=== PATIENT | male | born 1970 | race Caucasian/White ===

== ENCOUNTER 2017-08-12 01:32 | Outpatient (CLI) | payer BC | END 2017-08-12 23:59 | disposition home or self-care (01) | LOC: DIABETIC 01:32 | PROVIDERS: ATTEND Specialist | DX: E11.9 Type 2 diabetes mellitus without complications (principal) | CPT/HCPCS: G0108 ==

== ENCOUNTER 2017-08-30 14:57 | Emergency (ER) | payer BC ==
[~2017-08-30] VITALS: Ht 180.3 cm; Wt 104.5 kg
[2017-08-30] MEDS ORDERED: epiNEPHrine 1 mg/ml inj SQ PRN (15:05)
[2017-08-30] MEDS ORDERED: normal saline 1000ML IV soln IVB ONE ×2 (15:05)
[2017-08-30] MEDS ORDERED: diphenhydrAMINE 50 mg/ml inj IV ONE (15:05)
[2017-08-30] MEDS ORDERED: famotidine/PF 10 mg/ml inj IV ONE (15:05)
[2017-08-30] MEDS ORDERED: dexamethasone sod phosphate 10mg/ml inj IV STA (15:05)
[2017-08-30 17:00] VITALS: BP 120/80
[2017-08-30] MEDS ORDERED: PRED20TA PO (17:20)
[2017-08-30] MEDS ORDERED: EPIN0.3P8 IM (17:20)
== END 2017-08-30 17:35 | disposition home or self-care (01) ==
LOC: ER 14:57
DX: T63.441A Toxic effect of venom of bees, accidental (unintentional), initial encounter (principal); G89.29 Other chronic pain; E11.9 Type 2 diabetes mellitus without complications; M19.90 Unspecified osteoarthritis, unspecified site; Z88.5 Allergy status to narcotic agent; Z79.899 Other long term (current) drug therapy; Y92.89 Other specified places as the place of occurrence of the external cause
CPT/HCPCS: 96361; 96372; 96374; 96375; 99284; J0171; J1100; J1200; J3490; J7030

== ENCOUNTER 2017-09-30 02:43 | Outpatient (CLI) | payer BC ==
[~2017-09-30 02:43] MED LIST: EPIN0.3P8 IM; PRED20TA PO
== END 2017-09-30 23:59 | disposition home or self-care (01) ==
LOC: DIABETIC 02:43
PROVIDERS: ATTEND Specialist
DX: E11.9 Type 2 diabetes mellitus without complications (principal)
CPT/HCPCS: G0108

== ENCOUNTER 2022-10-17 18:54 | Emergency (ER) | payer BC, MEDICAID ==
[~2022-10-17] VITALS: Ht 180.3 cm; Wt 99.2 kg
[~2022-10-17 18:54] MED LIST changes: -PRED20TA PO
[2022-10-17] MEDS ORDERED: epiNEPHrine 1 mg/ml inj SQ STA (19:03)
[2022-10-17] MEDS ORDERED: normal saline 1000ML IV soln IVB STA (19:31)
[2022-10-17] MEDS ORDERED: methylPREDNISolone sod succ 125mg/2ml vial IV ONE (19:35)
[2022-10-17 19:59] LABS: BASOPHILS # (AUTO) 0.1 X10'3 (0-0.2); BASOPHILS % (AUTO) 0.6 % (0-1); EOSINOPHILS # (AUTO) 0.4 X10'3 (0-0.9); EOSINOPHILS % (AUTO) 3.8 % (0-6); HEMATOCRIT 47.7 % (42.0-52.0); HEMOGLOBIN 16.3 g/dl (14.0-17.9); LYMPHOCYTES # (AUTO) 4.3 X10'3 (1.1-4.8); LYMPHOCYTES % (AUTO) 46.4 % (21-51); MEAN CORPUSCULAR HEMOGLOBIN 28.9 PG (27.0-31.0); MEAN CORPUSCULAR VOLUME 84.8 FL (78-98); MEAN PLATELET VOLUME 9.1 FL (7.4-10.4); MONOCYTES # (AUTO) 0.7 X10'3 (0-0.9); MONOCYTES % (AUTO) 7.3 % (2-12); NEUTROPHILS # (AUTO) 3.9 X10'3 (1.8-7.7); NEUTROPHILS % (AUTO) 41.9 % (42-75); PLATELET COUNT 228 X10'3 (140-440); RED BLOOD COUNT 5.63 X10'6 (4.70-6.10); WHITE BLOOD COUNT 9.4 X10'3 (4.5-11.0)
[2022-10-17 20:12] LABS: ALANINE AMINOTRANSFERASE 18 U/L (12-78); ALBUMIN 4.1 G/DL (3.4-5.0); ALBUMIN/GLOBULIN RATIO 1.2 (1.1-1.5); ALKALINE PHOSPHATASE 105 IU/L (46-116); ANION GAP 8 (8-16); ASPARTATE AMINO TRANSFERASE 14 U/L (10-37); BILIRUBIN,TOTAL 0.5 MG/DL (0.1-1.0); BLOOD UREA NITROGEN 14 MG/DL (7-18); BUN/CREATININE RATIO 12.6 (10.0-20.0); CALCIUM 9.4 MG/DL (8.5-10.1); CHLORIDE 103 MMOL/L (99-107); CREATININE 1.11 MG/DL (0.60-1.10); GLUCOSE 185 MG/DL (70-104); POTASSIUM 3.9 MMOL/L (3.5-5.1); SODIUM 137 MMOL/L (135-145); TOTAL CARBON DIOXIDE 25.9 MMOL/L (24-32); TOTAL PROTEIN 7.4 G/DL (6.4-8.2); eGFR 69 ML/MIN
[2022-10-17] MEDS ORDERED: PRED20TA PO (21:21)
[2022-10-17] MEDS ORDERED: EPIN0.3P3 IM (21:21)
[2022-10-17 21:30] VITALS: BP 120/76
== END 2022-10-17 21:31 | disposition home or self-care (01) ==
LOC: ER 18:54
DX: T63.441A Toxic effect of venom of bees, accidental (unintentional), initial encounter (principal); Y92.89 Other specified places as the place of occurrence of the external cause
CPT/HCPCS: 36415; 71045; 80053; 85025; 96361; 96372; 96374; 99284; J0171; J2930; J7030

== ENCOUNTER 2023-09-30 09:29 | Outpatient (CLI) | payer BC ==
[~2023-09-30 09:29] MED LIST changes: +EPIN0.3P3 IM
[2023-09-30 10:28] LABS: ALANINE AMINOTRANSFERASE 27 U/L (12-78); ALBUMIN 3.7 G/DL (3.4-5.0); ALKALINE PHOSPHATASE 100 IU/L (46-116); ANION GAP 8 (8-16); ASPARTATE AMINO TRANSFERASE 20 U/L (10-37); BILIRUBIN,TOTAL 0.7 MG/DL (0.1-1.0); BLOOD UREA NITROGEN 21 MG/DL (7-18); BUN/CREATININE RATIO 23.6 (10.0-20.0); CHLORIDE 103 MMOL/L (99-107); CREATININE 0.89 MG/DL (0.60-1.10); GLUCOSE 205 MG/DL (70-104); SODIUM 136 MMOL/L (135-145); TOTAL CARBON DIOXIDE 24.8 MMOL/L (24-32); TOTAL PROTEIN 7.3 G/DL (6.4-8.2); eGFR 89 ML/MIN
[2023-09-30 10:39] LABS: CHOL/HDL RATIO 6.6 (0.00-4.99); CHOLESTEROL 257 MG/DL (0-200); HDL CHOLESTEROL 39 MG/DL (35-60); LDL CHOLESTEROL 131 MG/DL (50-100); TRIGLYCERIDES 352 MG/DL (20-135)
[2023-09-30 10:43] LABS: THYROID STIMULATING HORMONE 1.12 ulU/ml (0.34-4.50)
[2023-09-30 10:49] LABS: HEMOGLOBIN A1C 8.6 % (4.5-6.2)
[2023-10-02 05:57] LABS: MICROALBUMIN, RANDOM URINE 8.9 ug/mL (Not Estab.)
== END 2023-09-30 23:59 | disposition home or self-care (01) ==
LOC: LAB 09:29
PROVIDERS: ATTEND Internal Medicine Endocrinology, Diabetes & Metabolism
DX: E11.9 Type 2 diabetes mellitus without complications (principal); E55.9 Vitamin D deficiency, unspecified; E78.5 Hyperlipidemia, unspecified
CPT/HCPCS: 36415; 80053; 80061; 82043; 82306; 83036; 84443

== ENCOUNTER 2024-03-21 01:04 | Emergency (ER) | payer BC ==
[~2024-03-21] VITALS: Ht 177.8 cm; Wt 102.3 kg
[2024-03-21 01:16] VITALS: BP 146/97; PULSE 71; TEMP 98.7; O2SAT 97
[2024-03-21 03:43] VITALS: RESP 18
== END 2024-03-21 03:44 | disposition home or self-care (01) ==
LOC: ER 01:11
DX: M25.561 Pain in right knee (principal); M19.90 Unspecified osteoarthritis, unspecified site; E11.9 Type 2 diabetes mellitus without complications; G89.29 Other chronic pain; M54.9 Dorsalgia, unspecified; Z88.5 Allergy status to narcotic agent; Z79.899 Other long term (current) drug therapy; X50.1XXA Overexertion from prolonged static or awkward postures, initial encounter; Y93.89 Activity, other specified; Y92.89 Other specified places as the place of occurrence of the external cause; Y99.8 Other external cause status
CPT/HCPCS: 29505; 73700; 99284; A6449

== ENCOUNTER 2024-04-10 13:24 | Outpatient (CLI) | payer BC, OTHER ==
[2024-04-10 15:46] LABS: HIV ANTIBODY 1&2 RAPID NON-REACTIVE (Neg)
[2024-04-14 05:23] LABS: HEPATITIS C VIRUS ANTIBODY Non Reactive (Non Reactive)
== END 2024-04-10 23:00 | disposition home or self-care (01) ==
LOC: LAB 13:24 → ER 23:00
PROVIDERS: ATTEND Emergency Medicine
DX: Z77.21 Contact with and (suspected) exposure to potentially hazardous body fluids (principal)
CPT/HCPCS: 36415; 84460; 86703; 86803; 87522

== ENCOUNTER 2024-07-30 10:17 | Emergency (ER) | payer BC ==
[~2024-07-30] VITALS: Ht 180.3 cm; Wt 101.4 kg
[2024-07-30 10:20] VITALS: BP 139/85; PULSE 73; RESP 18; TEMP 97.8; O2SAT 98
[2024-07-30] MEDS ORDERED: ERYT1OIN6 RIGHTEYE (10:21)
[2024-07-30] MEDS ORDERED: DOXY-1 PO (10:21)
== END 2024-07-30 10:39 | disposition home or self-care (01) ==
LOC: ER 10:18
DX: H00.011 Hordeolum externum right upper eyelid (principal); E11.9 Type 2 diabetes mellitus without complications; M19.90 Unspecified osteoarthritis, unspecified site; Z88.5 Allergy status to narcotic agent; Z98.890 Other specified postprocedural states
CPT/HCPCS: 99283

== ENCOUNTER 2024-10-07 01:33 | Emergency (ER) | payer BC ==
[~2024-10-07] VITALS: Ht 180.3 cm; Wt 93.0 kg
[2024-10-07 01:34] VITALS: BP 143/89; PULSE 69; RESP 15; TEMP 96.8; O2SAT 98
--- NOTE | 2024-10-07 02:01 | RADIOLOGY REPORT ---
CHEST RADIOGRAPH Indication: sepsis Technique: Single frontal view of the chest was obtained COMPARISON: CHEST,SINGLE VIEW on DOS: 10/17/22 FINDINGS: Lines and Tubes: None Lungs: Clear Pleura: No effusion. No pneumothorax. Cardiomediastinal contours: Unremarkable IMPRESSION: No abnormality demonstrated. No appreciable change compared to the prior chest x-ray from October 2022.
[2024-10-07 02:04] LABS: BASOPHILS % (AUTO) 0.6 % (0-1); EOSINOPHILS # (AUTO) 0.5 X10'3 (0-0.9); EOSINOPHILS % (AUTO) 6.3 % (0-6); HEMATOCRIT 40.1 % (42.0-52.0); HEMOGLOBIN 13.9 g/dl (14.0-17.9); LYMPHOCYTES # (AUTO) 2.8 X10'3 (1.1-4.8); LYMPHOCYTES % (AUTO) 38.8 % (21-51); MEAN CORPUSCULAR HEMOGLOBIN 29.1 PG (27.0-31.0); MEAN CORPUSCULAR HGB CONC 34.6 g/dL (33.0-36.5); MEAN CORPUSCULAR VOLUME 84.2 FL (78-98); MEAN PLATELET VOLUME 9.3 FL (7.4-10.4); MONOCYTES # (AUTO) 0.5 X10'3 (0-0.9); MONOCYTES % (AUTO) 6.9 % (2-12); NEUTROPHILS # (AUTO) 3.4 X10'3 (1.8-7.7); NEUTROPHILS % (AUTO) 47.4 % (42-75); PLATELET COUNT 203 X10'3 (140-440); RED BLOOD COUNT 4.76 X10'6 (4.70-6.10); RED CELL DISTRIBUTION WIDTH 13.2 % (11.5-14.5); WHITE BLOOD COUNT 7.1 X10'3 (4.5-11.0)
[2024-10-07 02:21] LABS: ALANINE AMINOTRANSFERASE 17 U/L (12-78); ALBUMIN 3.8 G/DL (3.4-5.0); ALBUMIN/GLOBULIN RATIO 1.3 (1.1-1.5); ALKALINE PHOSPHATASE 92 IU/L (46-116); ANION GAP 9 (8-16); ASPARTATE AMINO TRANSFERASE 17 U/L (10-37); BILIRUBIN,TOTAL 0.7 MG/DL (0.1-1.0); BLOOD UREA NITROGEN 14 MG/DL (7-18); BUN/CREATININE RATIO 14.7 (10.0-20.0); CALCIUM 8.8 MG/DL (8.5-10.1); CHLORIDE 104 MMOL/L (99-107); CREATININE 0.95 MG/DL (0.60-1.10); GLUCOSE 110 MG/DL (70-104); POTASSIUM 3.5 MMOL/L (3.5-5.1); SODIUM 140 MMOL/L (135-145); TOTAL CARBON DIOXIDE 26.7 MMOL/L (24-32); TOTAL PROTEIN 6.8 G/DL (6.4-8.2); eCRCL 92 ML/MIN; eGFR 82 ML/MIN
[2024-10-07 02:37] LABS: BILIRUBIN,URINE NEGATIVE (Neg); CLARITY,URINE CLEAR (Clear); COLOR,URINE YELLOW (Yellow); GLUCOSE, URINE NEGATIVE (Neg); KETONES,URINE TRACE mg/dl (Neg); LEUKOCYTE ESTERASE ,URINE NEGATIVE (Neg); NITRITES, URINE NEGATIVE (Neg); OCCULT BLOOD,URINE NEGATIVE (Neg); PROTEIN,URINE NEGATIVE (Neg); UROBILINOGEN,URINE 0.2 E.U/dL (0.2-1.0)
[2024-10-07 02:42] LABS: UA COLLECTION TYPE CLN CATCH MIDSTREAM
--- NOTE | 2024-10-07 03:29 | Physician Documentation ---
History of Present Illness ~ Chief Complaint: Back Pain Stated Complaint: BACK PAIN Time Seen by MD: 03:23 Primary Medical Doctor: EARLENE BAIRES CADDIE HPI Patient reports right-sided back pain that has been going on for proximally two months. He has done course of steroids with improvement however symptoms have continued. He has done conservative management such as stretching and [id number] remedies with little benefit. He does not have a primary care in his unsure of his prostate status. Medication Reconciliation Allergies: Coded Allergies: morphine (Verified Allergy, Unknown, VOMTING, 10/07/24) Uncoded Allergies: BEE STING (Allergy, Severe, HIVES, TONGUE SWELLING., 08/30/17) Scheduled Epinephrine (Epipen 2-Cecilio), 0.3 MG IM UD Scheduled PRN Epinephrine (Epipen 2-Cecilio), 1 SYR IM ONCE PRN for allergies Past Medical History Past Medical History: Diabetes, Arthritis, Chronic Back Pain Past Surgical History: abdominal surgery Lives with: Spouse Lives In: Home Occupation: employed Review of Systems ROS All review of systems negative except as per HPI Physical Exam Physical Exam Vital Signs: Temperature: 96.8, Source: Temporal, Heart Rate: 69, Respiratory Rate: 15, BP: 143/89, Pulse Oximetry: 98, Weight: 93.000 Physical Exam General: Patient is awake, alert, oriented x4 in no acute distress and well appearing.~ Head: Normocephalic and atraumatic. Eyes: Conjunctival normal. EOMI. PERRL. ENT: Mucous membranes moist. Neck: Supple, trachea is midline. Chest: Clear to auscultation bilaterally without rales, rhonchi, or wheezes. There is no accessory muscle use or retractions. Cardiac: RRR without murmurs, gallops, or rubs. Back: Tenderness to palpation beneath right scapula. No spinal midline tenderness Progress Results/Orders Results/Orders Orders - LUMA SCHMIDT MD Psa Total+% Free (10/07/24 01:36) Chest,Single View (10/07/24 01:51) Completed Orders - LUMA SCHMIDT MD CMP (10/07/24 01:36) Cbc/Diff (10/07/24 01:36) Chest,Single View (10/07/24 01:51) Urinalysis, Cult If Indicated (10/07/24 02:04) Vital Signs 10/07/24 01:34 Temp 96.8 Pulse 69 Resp 15 B/P (MAP) 143/89 Pulse Ox 98 Laboratory Tests Test 10/07/24 01:44 10/07/24 01:45 White Blood Count 7.1 Red Blood Count 4.76 Hemoglobin 13.9 L Hematocrit 40.1 L Mean Corpuscular Volume 84.2 Mean Corpuscular Hemoglobin 29.1 Mean Corpuscular Hemoglobin Concent 34.6 Red Cell Distribution Width 13.2 Platelet Count 203 Mean Platelet Volume 9.3 Neutrophils (%) (Auto) 47.4 Lymphocytes (%) (Auto) 38.8 Monocytes (%) (Auto) 6.9 Eosinophils (%) (Auto) 6.3 H Basophils (%) (Auto) 0.6 Neutrophils # (Auto) 3.4 Lymphocytes # (Auto) 2.8 Monocytes # (Auto) 0.5 Eosinophils # (Auto) 0.5 Basophils # (Auto) 0.0 CBC Comment Sodium Level 140 Potassium Level 3.5 Chloride Level 104 Carbon Dioxide Level 26.7 Anion Gap 9 Blood Urea Nitrogen 14 Creatinine 0.95 Estimated GFR/1.73 m2 82 BUN/Creatinine Ratio 14.7 Glucose Level 110 H Calcium Level 8.8 Total Bilirubin 0.7 Aspartate Amino Transf (AST/SGOT) 17 Alanine Aminotransferase (ALT/SGPT) 17 Alkaline Phosphatase 92 Total Protein 6.8 Albumin 3.8 Globulin 3.0 Albumin/Globulin Ratio 1.3 Chemistry Comments Urine Specimen Description Cln catch midstream Urine Color Yellow Urine Clarity Clear Urine pH 6.0 Urine Specific [place] >=1.030 Urine Protein Negative Urine Glucose (UA) Negative Urine Ketones Trace H Urine Occult Blood Negative Urine Nitrite Negative Urine Bilirubin Negative Urine Urobilinogen 0.2 Urine Leukocyte Esterase Negative Urine Culture Indicated Not ind Volume Urine Centrifuged 10 ml Urine Comment Medical Decision Making Findings Patient presented to the emergency room with back pain as per HPI. Differentials include but are not limited to musculoskeletal pain, pneumothorax, shingles, cancer therefore emergent labs and imaging indicated. Labs and imaging reassuring. PSA pending. Given tenderness to palpations was reassuring for likely not cancer. Conservative management discussed. Departure Disposition: HOME / SELF CARE / HOMELESS Impression: Primary Impression: Back problem Condition: Stable Discharge Instructions: Acute Back Pain, Adult Additional Instructions: Follow up with your primary care as you may need physical therapy versus advanced imaging. Call back within the week to follow up with your PSA results. Referrals: NO PRIMARY CARE PROVIDER (PCP) Education Educated: Patient Educated regarding: diagnosis, treatment, need for follow up Signature Scribe Signature: No scribe Attestation: The note accurately reflects work and decisions made by me.Luma Schmidt MD 10/07/24 03:31 LUMA SCHMIDT MD October 07, 2024 03:29
[2024-10-07] MEDS ORDERED: CYCL-1 PO (03:59)
[2024-10-08 11:15] LABS: PROSTATE SPECIFIC AG, SERUM 0.5 ng/mL (0.0-4.0); PSA, FREE 0.19 ng/mL
== END 2024-10-07 03:55 | disposition home or self-care (01) ==
LOC: ER 01:33 → EEVIPCON 01:33 → ER 03:55
DX: M54.9 Dorsalgia, unspecified (principal); E11.9 Type 2 diabetes mellitus without complications; M19.90 Unspecified osteoarthritis, unspecified site; Z88.5 Allergy status to narcotic agent
CPT/HCPCS: 36415; 71045; 80053; 81003; 84153; 84154; 85025; 99284

== ENCOUNTER 2024-10-20 06:16 | Emergency (ER) | payer BC ==
[~2024-10-20] VITALS: Ht 180.3 cm; Wt 95.8 kg
[~2024-10-20 06:16] MED LIST changes: +CYCL-1 PO
[2024-10-20 06:19] VITALS: BP 142/86; PULSE 67; RESP 18; O2SAT 99
--- NOTE | 2024-10-20 06:35 | Physician Documentation ---
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 He reports abnormal curvature to penis. He has no discomfort at baseline and has no dysuria hematuria. He is requesting urology referral Medication Reconciliation Allergies: Coded Allergies: morphine (Verified Allergy, Unknown, VOMTING, 10/20/24) Uncoded Allergies: BEE STING (Allergy, Severe, HIVES, TONGUE SWELLING., 08/30/17) Scheduled Cyclobenzaprine* (Cyclobenzaprine*), 1 TAB PO HS Epinephrine (Epipen 2-Cecilio), 0.3 MG IM UD Scheduled PRN Epinephrine (Epipen 2-Cecilio), 1 SYR IM ONCE PRN for allergies Past Medical History Past Medical History: Diabetes, Arthritis, Chronic Back Pain Past Surgical History: abdominal surgery Lives with: Spouse Lives In: Home Occupation: employed Review of Systems All Other Systems at this time: Reviewed and Negative Constitutional: Denies: fever Male Genitalia: Denies: penile discharge, penile sore, testicular pain, testicular swelling Physical Exam Vital Signs: Temperature: 97.5, Source: Temporal, Heart Rate: 67, Respiratory Rate: 18, BP: 142/86, Pulse Oximetry: 99, Weight: 95.850 General Appearance Well-appearing no distress deferred Progress Results/Orders Results/Orders Vital Signs 10/20/24 06:19 Temp 97.5 Pulse 67 Resp 18 B/P (MAP) 142/86 Pulse Ox 99 Medical Decision Making Additional Comment Fracture pain is, a child dysfunction, priapism other causes of erectile and discomfort Departure Disposition: 01 HOME / SELF CARE / HOMELESS Impression: Primary Impression: Penile pain Additional Instructions: Please follow up with Urology return if you develop fever or increasing discomfort persistent erection Referrals: GABE RICH MD Signature Scribe Signature: asya Attestation: JASON Escalera MD Oct 20, 2024 06:35
[2024-10-20 06:43] VITALS: TEMP 97.5
== END 2024-10-20 06:45 | disposition home or self-care (01) ==
LOC: EEVIPCON 06:17 → ER 06:17
DX: N48.89 Other specified disorders of penis (principal); M19.90 Unspecified osteoarthritis, unspecified site; E11.9 Type 2 diabetes mellitus without complications; Z88.5 Allergy status to narcotic agent; Z79.899 Other long term (current) drug therapy
CPT/HCPCS: 99281

== ENCOUNTER 2025-02-28 12:14 | Emergency (ER) | payer BC, OTHER ==
[~2025-02-28] VITALS: Ht 180.3 cm; Wt 90.0 kg
--- NOTE | 2025-02-28 12:57 | Physician Documentation ---
History of Present Illness ~ Chief Complaint: Needlestick Stated Complaint: NEEDLE STICK Time Seen by MD: 12:31 Primary Medical Doctor: ZAMZAM PETTIT Patient is seen today with complaints of needlestick/scalpel stick with the 11 blade to the left ring finger shortly after scalpel was used to incise and debride and abscess to a patient named Anastasiia Babb. Patient has no other concern or complaint at this time. He states he blood his finger shortly after. Patient did have the appropriate labs drawn and prophylaxis done. Tetanus within 5 Years?: Yes Medication Reconciliation Allergies: Coded Allergies: morphine (Verified Allergy, Unknown, VOMTING, 02/28/25) Uncoded Allergies: BEE STING (Allergy, Severe, HIVES, TONGUE SWELLING., 08/30/17) Scheduled Cyclobenzaprine* (Cyclobenzaprine*), 1 TAB PO HS Epinephrine (Epipen 2-Cecilio), 0.3 MG IM UD Scheduled PRN Epinephrine (Epipen 2-Cecilio), 1 SYR IM ONCE PRN for allergies Past Medical History Past Medical History: Diabetes, Arthritis, Chronic Back Pain Past Surgical History: abdominal surgery Lives with: Spouse Lives In: Home Occupation: employed Review of Systems Constitutional: Denies: chills, fever, weakness Eyes: Denies: pain, blurred vision ENT: Denies: ear pain, nose pain, throat pain, mouth pain Respiratory: Denies: cough, shortness of breath Cardiovascular: Denies: chest pain, palpitations Gastrointestinal: Denies: abdominal pain, nausea, vomiting Genitourinary: Denies: burning, dysuria Male Genitalia: Denies: penile discharge, testicular pain Neurological: Denies: headache, dizziness Musculoskeletal: Denies: pain, swelling Integumentary: Denies: rash, lesions Allergic/Immunologic: Denies: hives, itching Hematologic/Lymphatic: Denies: no symptoms reported Psychiatric: Denies: depression, anxiety Physical Exam Vital Signs: Temperature: 97.8, Source: Oral, Heart Rate: 74, Respiratory Rate: 18, BP: 124/78, Pulse Oximetry: 99, Weight: 90.000 Oxygen Flow Rate: 0 Physical Exam General: Awake and Alert, no acute distress. HEENT: Conjunctiva pink, Sclera clear, Mucus Membranes moist. Neck: Supple without masses and tenderness. Resp: Unlabored. Lungs clear to auscultation bilaterally. Heart: Regular Rate and rhythm, normal S1 and S2 without murmur, rub or gallop. Extremities: No cyanosis,clubbing or edema. Skin: Patient on exam does have very small laceration/bleeding from tuft of left ring finger. Progress Results/Orders Results/Orders Vital Signs 02/28/25 12:18 Temp 97.8 Pulse 74 Resp 18 B/P (MAP) 124/78 Pulse Ox 99 O2 Flow Rate 0 Medical Decision Making Additional information obtaine: N/A Findings Patient is seen today with complaints of needlestick/scalpel stick with the 11 blade to the left ring finger shortly after scalpel was used to incise and debride and abscess to a patient named Anastasiia Babb. Patient has no other concern or complaint at this time. He states he blood his finger shortly after. Patient did have the appropriate labs drawn and prophylaxis done. Patient did have appropriate labs drawn and prophylaxis performed today. Patient will return to ED with any worsening, concerning or changing symptoms. Differential Dx:Considerations: Include: Body Fluid Exposure, Infectious disease expos., Laceration, Puncture wound Departure Disposition: 01 HOME / SELF CARE / HOMELESS Impression: Primary Impression: Needlestick injury accident Condition: Stable Discharge Instructions: Needlestick and Sharps Injury Additional Instructions: Patient is seen today with complaints of needlestick/scalpel stick with the 11 blade to the left ring finger shortly after scalpel was used to incise and debride and abscess to a patient named Anastasiia Babb. Patient has no other concern or complaint at this time. He states he blood his finger shortly after. Patient did have the appropriate labs drawn and prophylaxis done. Referrals: NO PRIMARY CARE PROVIDER (PCP) Signature Scribe Signature: No scribe Attestation: No scribe JULIETA CONWAY PAC Feb 28, 2025 12:57
[2025-02-28 13:14] VITALS: BP 122/78; PULSE 78; RESP 18; TEMP 97.8; O2SAT 99
== END 2025-02-28 13:19 | disposition home or self-care (01) ==
LOC: ER 12:14
DX: Z77.21 Contact with and (suspected) exposure to potentially hazardous body fluids (principal); M19.90 Unspecified osteoarthritis, unspecified site; G89.29 Other chronic pain; E11.9 Type 2 diabetes mellitus without complications; Z88.5 Allergy status to narcotic agent; Z79.899 Other long term (current) drug therapy
CPT/HCPCS: 99282

== ENCOUNTER 2025-03-06 09:21 | Emergency (ER) | payer BC, OTHER ==
[~2025-03-06] VITALS: Ht 180.3 cm; Wt 90.0 kg
[2025-03-06 09:26] VITALS: BP 120/80; PULSE 70; RESP 16; TEMP 98; O2SAT 98
--- NOTE | 2025-03-06 11:44 | Physician Documentation ---
History of Present Illness ~ Chief Complaint: Finger pain Stated Complaint: OCC HEALTH/INFECTED FINGER Time Seen by MD: 11:35 Primary Medical Doctor: ZAMZAM Source: patient Mode of Arrival: POV Exam Limitations: no limitations HPI 54-year-old right-handed male presenting with left 4th digit pain and swelling which started six days ago after he was stuck with a scalpel while at work. 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 He states that the pain and swelling in the area have gotten progressively worse over the past six days and that he has had two lanced the area twice now clear fluid has drained both times he has done this. No other pre-arrival treatment. Tetanus within 5 years: Yes Medication Reconciliation Allergies: Coded Allergies: morphine (Verified Allergy, Unknown, VOMTING, 02/28/25) Uncoded Allergies: BEE STING (Allergy, Severe, HIVES, TONGUE SWELLING., 08/30/17) Scheduled Cyclobenzaprine* (Cyclobenzaprine*), 1 TAB PO HS Epinephrine (Epipen 2-Cecilio), 0.3 MG IM UD Scheduled PRN Epinephrine (Epipen 2-Cecilio), 1 SYR IM ONCE PRN for allergies Past Medical History Past Medical History: Diabetes, Arthritis, Chronic Back Pain Past Surgical History: abdominal surgery Lives with: Spouse Lives In: Home Occupation: employed Review of Systems All Other Systems at this time: Reviewed and Negative Physical Exam Vital Signs: Temperature: 98.0, Source: Temporal, Heart Rate: 70, Respiratory Rate: 16, BP: 120/80, Pulse Oximetry: 98, Weight: 90.000 Oxygen Flow Rate: 0 Physical Exam General Appearance: Alert, WD/WN. NAD. HEENT: NCAT, PERRL, EOMI. Neck: Supple, trachea midline. Lungs: Breathing unlabored Skin: LEFT 4TH DIGIT LATERAL TO NAIL PLATE SKIN IS ERYTHEMATOUS EDEMATOUS AND TTP, IN CENTER OF ERYTHEMA THERE IS ABOUT A 2MM SLIT IN THE SKIN CONSISTENT WITH HIS HISTORY OF BEING STUCK WITH SCALPEL AREA OF ERYTHEMA IS TTP. NO INDURATION OR FLUCTUANCE. AROM OF FINGER FULL, NO PROXIMAL ERYTHEMATOUS STREAK UP HAND. Neurological: Alert and oriented x4, normal gait. Psychiatric: Affect congruent with mood. Progress Results/Orders Results/Orders Completed Orders - DANIKA WYMAN Triamcinolone Acet. Ointment (Triamcinol (03/06/25 11:35) Sulfamethox/Trimetho. Ds Tab (Septra Ds (03/06/25 11:35) Vital Signs 03/06/25 09:26 Temp 98.0 Pulse 70 Resp 16 B/P (MAP) 120/80 Pulse Ox 98 O2 Flow Rate 0 Medical Decision Making Additional information obtaine: N/A Findings X General Diff Dx:Considerations: Include: Abrasion, Contusion, Fracture, Hematoma, Laceration, Malunion, Neurovascular injury, Open fracture, Sprain, Ulcer; Unlikely: Other Shoulder Diff Dx:Consideration: Unlikely: Other Elbow Diff Dx:Considerations: Unlikely: Other Wrist Diff Dx:Considerations: Unlikely: Other Hand Diff Dx:Considerations: Unlikely: Other Finger Diff Dx:Considerations: Unlikely: Other Departure Time of Disposition: 11:46 Disposition: 01 HOME / SELF CARE / HOMELESS Impression: Primary Impression: Cellulitis and abscess of finger, unspecified Additional Impression: Occupational injury Condition: Stable Discharge Instructions: Cellulitis, Adult, [id number] Additional Instructions: IF INCREASING REDNESS, OR PAIN, RETURN TO ER Referrals: NO PRIMARY CARE PROVIDER (PCP) Prescriptions Sulfamethoxazole/Trimethoprim (Bactrim Ds Tablet) 800 Mg-160 Mg Tablet 1 TAB PO Q12H for 10 Days, #20 TAB Prov: DANIKA WYMAN 03/06/25 Education Educated: Patient Educated regarding: diagnosis, treatment, need for follow up Signature Scribe Signature: X Attestation: DANIKA PARDO Mar 06, 2025 11:44
[2025-03-06] MEDS ORDERED: SULF1TAB49 PO (11:46)
[2025-03-06] MEDS: sulfamethoxazole/trimethoprim DS (800/160mg) tablet PO ONE (12:11)
[2025-03-06] MEDS: triamcinolone acetonide 0.1% ointment 15gm TP STA (12:12)
== END 2025-03-06 12:18 | disposition home or self-care (01) ==
LOC: EEVIPCON 09:22 → ER 09:22
DX: L02.512 Cutaneous abscess of left hand (principal); E11.9 Type 2 diabetes mellitus without complications; M19.90 Unspecified osteoarthritis, unspecified site; Z88.5 Allergy status to narcotic agent
CPT/HCPCS: 99283